=== PATIENT | male | born 1980 | race Caucasian/White ===

== ENCOUNTER 2020-05-10 00:20 | Outpatient (CLI) | payer OTHER | END 2020-05-10 00:21 | disposition critical access hospital (66) | LOC: EMS 00:20 | PROVIDERS: ATTEND Surgery | DX: R40.20 Unspecified coma (principal); W18.39XA Other fall on same level, initial encounter; Y92.007 Garden or yard of unspecified non-institutional (private) residence as the place of occurrence of the external cause; Z72.89 Other problems related to lifestyle | CPT/HCPCS: A0425; A0427 ==